=== PATIENT | male | born 1960 | race Caucasian/White ===

== ENCOUNTER 2025-03-15 13:58 | Outpatient (CLI) | payer MEDICARE, BC ==
--- NOTE | 2025-03-15 19:46 | RADIOLOGY REPORT ---
CLINICAL HISTORY: SHORTNESS OF BREATH,CHRONIC COUGH TECHNIQUE: CT of the chest was performed without intravenous contrast. This exam was performed according to our departmental dose optimization program. Up-to-date CT equipment and radiation dose reduction techniques are utilized as appropriate. Radiation optimization: All CT scans at this facility use at least one of these dose optimization techniques: automated exposure control mA and/or kV adjustment per patient size (includes targeted exams where dose is matched to clinical indication) or iterative reconstruction. CTDI: 17.85 mGy; DLP: 704.29 mGy COMPARISON: None FINDINGS: Lower Neck: Unremarkable Axilla, Mediastinum and Angelina: There is mild mediastinal lymphadenopathy. Limited evaluation of the angelina in the absence of intravenous contrast. No axillary lymphadenopathy. Heart and Great Vessels: Mild cardiomegaly and small pericardial effusion. The thoracic aorta is normal in caliber containing mild calcified atherosclerotic plaque. At least mild 3-vessel calcified coronary artery disease. Central pulmonary arteries are normal caliber. Airway, Lungs and Pleura: Trachea and central airways are patent. There are multiple ground-glass and tree-in-bud opacities in the lungs in all 5 lobes. Calcified granulomas bilaterally. Trace bilateral pleural effusions. No pneumothorax. Upper Abdomen: Partially imaged hypodensity off the upper pole left kidney which could reflect a cyst, not optimally evaluated on this study. Tiny hypodensities in the liver not optimally evaluated without contrast. Atrophic pancreas. Nodular contour of the liver. Portosystemic collateral vessels in the upper abdomen. Chest Wall and Osseous Structures: Multilevel multilevel thoracic spondylosis. No destructive osseous lesion. IMPRESSION: 1. Multiple ground-glass and tree-in-bud opacities in all 5 lobes of the lungs which could reflect atypical infection and/or pulmonary edema. Consider short- term follow-up in 3 months to re-evaluate this finding. 2. Mild cardiomegaly, small pericardial effusion, and trace bilateral pleural effusions. 3. Mild 3-vessel calcified coronary artery disease. 4. Nodular contour of the liver which could reflect cirrhosis or fibrosis. Correlate with liver enzymes and clinical history. 5. Portosystemic collateral vessels in the upper abdomen. 6. Mild mediastinal lymphadenopathy, nonspecific on initial exam. This could also be evaluated on follow-up imaging.
== END 2025-03-15 23:59 | disposition home or self-care (01) ==
LOC: RAD 13:58
PROVIDERS: ATTEND Nurse Practitioner Family
DX: I25.10 Atherosclerotic heart disease of native coronary artery without angina pectoris (principal); R06.02 Shortness of breath; R05.3 Chronic cough; I31.39 Other pericardial effusion (noninflammatory); J84.10 Pulmonary fibrosis, unspecified; K76.89 Other specified diseases of liver; N26.1 Atrophy of kidney (terminal); R59.0 Localized enlarged lymph nodes; I51.7 Cardiomegaly
CPT/HCPCS: 71250

== ENCOUNTER 2025-05-23 09:31 | Day surgery (SDC) | payer MEDICARE, BC ==
[2025-05-19 09:06] LABS: MEAN PLATELET VOLUME 9.3 FL (7.4-10.4); RED CELL DISTRIBUTION WIDTH 16.4 % (11.5-14.5)
[2025-05-19 09:17] LABS: APTT 31 SECONDS (22-32); INR 1.2 INR
[2025-05-19 09:18] LABS: CHOL/HDL RATIO 4.8 (0.00-4.99); CREATININE 1.15 MG/DL (0.60-1.10); LDL CHOLESTEROL 104 MG/DL (50-100); TOTAL CARBON DIOXIDE 27.4 MMOL/L (24-32); eGFR 64 ML/MIN
[~2025-05-23] VITALS: Ht 185.4 cm; Wt 105.6 kg
[2025-05-23 10:00] VITALS: BP 102/67; PULSE 68; RESP 18; TEMP 97.7; O2SAT 93
[2025-05-23] MEDS ORDERED: MIDAZolam 1mg/ml 10ml vial IV ONE (10:10)
[2025-05-23] MEDS ORDERED: fentaNYL/PF 50MCG/1 ML 2ML syringe IV ONE (10:10)
[2025-05-23] MEDS ORDERED: APIX5TAB3 PO (10:50)
[2025-05-23] MEDS ORDERED: ATOR10TA70 PO (10:50)
[2025-05-23] MEDS ORDERED: SACU1TAB PO (10:50)
[2025-05-23] MEDS ORDERED: BUDE10.7 INH (10:50)
[2025-05-23] MEDS ORDERED: DAPA10TA PO (10:50)
[2025-05-23] MEDS ORDERED: OMEP40CA21 PO (10:50)
[2025-05-23] MEDS ORDERED: METO-395 PO (10:50)
[2025-05-23] MEDS ORDERED: FEBU40TA6 PO (10:50)
[2025-05-23] MEDS ORDERED: AMIO200T76 PO (10:50)
[2025-05-23] MEDS ORDERED: MONT-40 PO (10:50)
[2025-05-23] MEDS: normal saline 1000ml 1,000 ML IV SCH (11:26)
[2025-05-23] MEDS ORDERED: amiodarone 50MG/ML inj IV ONE (12:49)
[2025-05-23] MEDS ORDERED: fentaNYL/PF 50MCG/1 ML 2ML syringe ONE (12:50)
[2025-05-23] MEDS ORDERED: atropine 0.1mg/ml 10ml syringe ONE (12:50)
[2025-05-23] MEDS ORDERED: midazolam 1 mg/ML 2ml injection ONE ×2 (12:50→13:11)
[2025-05-23 13:37] VITALS: BP 99/74; PULSE 63; RESP 12; O2SAT 94
[2025-05-23 13:45] VITALS: BP 95/52; PULSE 61; RESP 15; O2SAT 95
--- NOTE | 2025-05-23 13:58 | ELECTROCARDIOGRAPH REPORT ---
[facility] Test Date: 2025-05-23 Test Time: 13:55:26 Pat Name: MASON ROBLES Department: [facility] Patient ID: [facility]-[id number] Room: Gender: M Logistics Engineer: : 1960 Requested By: FREDERICK MENDOZA Order Number: [id number] Reading MD: Dr. ADOLPH Dimas Measurements Intervals [place] Rate: 58 P: 46 OH: 239 QRS: -47 QRSD: 160 T: 108 QT: 508 QTc: 500 Interpretive Statements Sinus rhythm Ventricular premature complex Prolonged OH interval Probable left atrial enlargement Left bundle branch block Electronically Signed On 05-24-2025 13:17:[address] ADOLPH Dimas Please click the below link to view image of tracing.
[2025-05-23 14:00] VITALS: BP 104/72; PULSE 58; RESP 12; O2SAT 97
[2025-05-23 14:15] VITALS: BP 106/68; PULSE 59; RESP 12; O2SAT 96
--- NOTE | 2025-06-08 19:49 | CARDIOLOGY REPORT ---
DATE OF SERVICE: 05/23/2025 DICTATING PHYSICIAN: Clarissa Carlin MD CARDIOVERSION DATE OF STUDY: 05/23/2025 PHYSICIAN: Clarissa Carlin MD NAME OF PROCEDURE: Electrical cardioversion. DESCRIPTION OF PROCEDURE: The patient was brought to cardiac short stay where he was prepped in the usual manner. After gradual increments of Versed and fentanyl, and conscious sedation was obtained, the patient was cardioverted. The patient remained clinically and hemodynamically stable throughout the procedure. IMPRESSION: Successful electrical cardioversion to normal sinus rhythm without complication. Clarissa Carlin MD TID: [id number] RECEIPT: [id number] AMBREEN/RON
== END 2025-05-23 14:20 | disposition home or self-care (01) ==
LOC: SSTAY O 09:31
PROVIDERS: ATTEND Student in an Organized Health Care Education/Training Program
DX: I48.91 Unspecified atrial fibrillation (principal); I49.3 Ventricular premature depolarization; I44.7 Left bundle-branch block, unspecified; I44.0 Atrioventricular block, first degree; I25.83 Coronary atherosclerosis due to lipid rich plaque; E11.9 Type 2 diabetes mellitus without complications; E78.5 Hyperlipidemia, unspecified; I10 Essential (primary) hypertension; J45.909 Unspecified asthma, uncomplicated; K21.9 Gastro-esophageal reflux disease without esophagitis; M10.9 Gout, unspecified
CPT/HCPCS: 80048; 80061; 85025; 85610; 85730; 92960; 93005; 99152; A4615; J2250; J3010; J7030; Z7610; J0282; J0461